=== PATIENT | male | born 1955 | race Caucasian/White ===

== ENCOUNTER → 2017-10-19 | Outpatient (CLI) | payer BC ==
[~2017-10-19] MED LIST: ALEVE220 M2 PO; ASPIRIN81 M2 PO; CYCLOBENZAPRINE10 MG PO; FLAX OIL1000 MG PO; HYZAAR 50-121 TABLET PO; JANUVIA100 MG PO; LANSOPRAZOLE30 MG PO; PRAVASTATIN SOD80 MG PO; VITAMIN D31000 UNIT PO; VITAMIN E400 UNIT PO
== END | disposition home or self-care (01) ==
LOC: CDC 13:30
DX: I10 Essential (primary) hypertension (principal)
CPT/HCPCS: 93000

== ENCOUNTER → 2017-12-28 | Outpatient (CLI) | payer BC | END | disposition home or self-care (01) | LOC: CDC 15:40 | DX: R94.31 Abnormal electrocardiogram [ECG] [EKG] (principal) | CPT/HCPCS: 93000 ==